=== PATIENT | male | born 1985 | race Caucasian/White ===

== ENCOUNTER 2017-05-17 21:45 | Emergency (ER) | payer OTHER ==
[2017-05-17 22:43] LABS: HEMOGLOBIN 16.9 gm/dl (14.0-17.5); RED BLOOD COUNT 5.56 M/UL (4.20-5.50); WHITE BLOOD COUNT 14.4 K/UL (4.5-11.0)
[2017-05-17 23:01] LABS: BUN/CREATININE RATIO 18 (0-10)
== END 2017-05-18 02:20 | disposition home or self-care (01) ==
LOC: ER1 21:45 → ZEROF 23:14 → ER1 05-18 02:20
PROVIDERS: Emergency Medicine
DX: R07.2 Precordial pain (principal); R06.02 Shortness of breath; E86.0 Dehydration; D72.829 Elevated white blood cell count, unspecified; R11.0 Nausea; I10 Essential (primary) hypertension; F17.200 Nicotine dependence, unspecified, uncomplicated
CPT/HCPCS: 36415; 71010; 80053; 82550; 82553; 83874; 83880; 84484; 85025; 96360; 96361; 99285

== ENCOUNTER 2020-10-06 12:45 | Emergency (ER) | payer OTHER ==
[~2020-10-06 12:45] MED LIST: FLEXERIL 10 MG10 MG PO; IBUPROFEN800 MG PO; INDOCIN 50 MG C50 MG PO; LODINE CAP 300300 MG PO; NEOSPORIN OINT30 GM TOP
[2020-10-06] MEDS ORDERED: IBUPROFEN600 MG PO (14:41)
[2020-10-06] MEDS ORDERED: BACTROBAN OINT22 GM EXT (14:41)
[2020-10-06] MEDS ORDERED: AUGMENTIN 875-1 EACH PO (14:41)
== END 2020-10-06 14:44 | disposition home or self-care (01) ==
LOC: ER1 12:45
DX: S60.474A Other superficial bite of right ring finger, initial encounter (principal); S60.476A Other superficial bite of right little finger, initial encounter; S61.451A Open bite of right hand, initial encounter; I10 Essential (primary) hypertension; Z88.8 Allergy status to other drugs, medicaments and biological substances; Z87.891 Personal history of nicotine dependence; W54.0XXA Bitten by dog, initial encounter; Y92.009 Unspecified place in unspecified non-institutional (private) residence as the place of occurrence of the external cause
CPT/HCPCS: 29125; 73130; 99283

== ENCOUNTER 2021-02-23 23:15 | Emergency (ER) | payer OTHER ==
[~2021-02-23 23:15] MED LIST changes: +AUGMENTIN 875-1 EACH PO; +BACTROBAN OINT22 GM EXT; +IBUPROFEN600 MG PO
[2021-02-24] MEDS ORDERED: CLEOCIN HCL300 MG PO (00:20)
[2021-02-24] MEDS ORDERED: IBUPROFEN600 MG PO (00:20)
== END 2021-02-24 01:12 | disposition home or self-care (01) ==
LOC: ER1 23:15
DX: L03.116 Cellulitis of left lower limb (principal); E78.5 Hyperlipidemia, unspecified; I10 Essential (primary) hypertension; F17.210 Nicotine dependence, cigarettes, uncomplicated
CPT/HCPCS: 96374; 99283

== ENCOUNTER 2022-03-23 01:43 | Emergency (ER) | payer OTHER ==
[~2022-03-23 01:43] MED LIST changes: +CLEOCIN HCL300 MG PO
== END 2022-03-23 02:12 | disposition home or self-care (01) ==
LOC: ER1 01:43
DX: S66.911A Strain of unspecified muscle, fascia and tendon at wrist and hand level, right hand, initial encounter (principal); S60.221A Contusion of right hand, initial encounter; W19.XXXA Unspecified fall, initial encounter
CPT/HCPCS: 73110; 73130; 99283